=== PATIENT | male | born 1935 | race Caucasian/White ===

== ENCOUNTER 2021-02-15 04:00 | Inpatient (IN) | payer MEDICARE ==
[2021-02-15 05:55] LABS: ALT (SGPT) 13 U/L (8-55); AST (SGOT) 14 U/L (5-34); Albumin 3.8 g/dL (3.4-4.8); Alkaline Phosphatase 68 U/L (40-110); Anion Gap 18 mmol/L (10-20); BUN (Urea Nitrogen) 42 mg/dL (8.4-25.7); Bilirubin, Total 0.8 mg/dL (0.2-1.2); Calc. Creatinine Clearance 0 mL/min (70-130); Calcium 8.8 mg/dL (7.8-10.44); Carbon Dioxide 26 mmol/L (23-31); Chloride 100 mmol/L (98-107); Globulin 2.5 g/dL (2.4-3.5); Glucose 97 mg/dL (83-110); Potassium 3.5 mmol/L (3.5-5.1); Protein, Total 6.3 g/dL (5.8-8.1); Sodium 140 mmol/L (136-145)
[2021-02-15 06:00] LABS: #Eosinphils 0.3 thou/uL (0.0-0.7); #Lymphocytes 0.8 thou/uL (1.20-3.40); #Monocytes 0.6 thou/uL (0.11-0.59); #Neutrophils 8.9 thou/uL (1.40-6.50); %Basophils 0.2 % (0.0-1.0); %Eosinophils 2.5 % (0.0-10.0); %Lymphocytes 7.7 % (21.0-51.0); %Monocytes 5.5 % (0.0-10.0); %Neutrophils 84.1 % (42.0-75.0); Hemoglobin 12.3 g/dL (14.0-18.0); MDiff Complete? YES; Macrocytosis SLIGHT = 6-15 cells (100X) (0-5/hpf); Mean Corpuscular HGB CONC 34.2 g/dL (32.0-36.0); Mean Corpuscular Hemoglobin 36.3 pg (27.0-31.0); Mean Platelet Volume 7.9 fL (7.4-10.4); Platelet Count 146 thou/uL (130-400); RBC Distribution Width 13.8 % (11.5-14.5); Red Blood Cell (RBC) Count 3.39 mill/uL (4.70-6.10); White Blood Cell (WBC) Count 10.6 thou/uL (4.8-10.8)
[2021-02-15] MEDS ORDERED: Cyclobenzaprine 10 MG TAB PO PRN (06:20)
[2021-02-15] MEDS ORDERED: hydrALAZINE 20 MG/ML VIAL SLOW IVP PRN (06:20)
[2021-02-15] MEDS ORDERED: Ondansetron PF 4 MG/2 ML Vial IVP PRN (06:20)
[2021-02-15] MEDS ORDERED: traMADol HCl 50 MG TAB PO PRN ×2 (06:20)
[2021-02-15] MEDS ORDERED: Dextrose 50% Abboject 50 ML SYRINGE SLOW IVP PRN (06:20)
[2021-02-15] MEDS ORDERED: Dextrose 5% in Water 1,000 ML IV PRN (06:20)
[2021-02-15] MEDS ORDERED: Ondansetron ODT 4 MG TAB PO PRN (06:20)
[2021-02-15 06:23] VITALS: BMI 24.3
[2021-02-15] MEDS: Sodium Chloride 0.9% 1,000 ML IV SCH ×3 (06:42→23:59)
[2021-02-15] MEDS: Acetaminophen 500 MG TAB PO SCH ×3 (06:42→19:52)
[2021-02-15] MEDS ORDERED: CEFAZOLIN 2 GM in Premix Bag 1 BAG IVPB SCH (07:15)
[2021-02-15] MEDS ORDERED: Famotidine 20 MG TAB PO SCH (09:00)
[2021-02-15 09:06] LABS: SARS-CoV-2 NAA Rapid Test Not Detected (NotDetected)
[2021-02-15] MEDS: Famotidine 20 MG TAB PO SCH (11:15)
[2021-02-15] MEDS ORDERED: Fentanyl 100 MCG/2 ML VIAL ONE ×2 (13:55→16:50)
[2021-02-15] MEDS ORDERED: Ondansetron PF 4 MG/2 ML Vial ONE (15:00)
[2021-02-15] MEDS ORDERED: PROPOFOL 200 MG/20 ML VIAL ONE (15:00)
[2021-02-15] MEDS ORDERED: Rocuronium Bromide 10 MG/ML (10ML VIAL) ONE (15:00)
[2021-02-15] MEDS ORDERED: Dexamethasone 20 MG/5 ML VIAL ONE (15:00)
[2021-02-15] MEDS ORDERED: Lidocaine 1% PF 5 ML VIAL ONE (15:00)
[2021-02-15] MEDS ORDERED: Promethazine HCl 25 MG/ML VIAL IM/IV PRN ×2 (16:00→17:00)
[2021-02-15] MEDS ORDERED: Ondansetron HCl/PF 4 MG/2 ML Vial IVP PRN ×2 (16:00→17:00)
[2021-02-15] MEDS ORDERED: SUGAMMADEX SODIUM 200 MG/2 ML VIAL ONE (16:03)
[2021-02-15] MEDS ORDERED: Non-Formulary Medication 1 EACH PO PRN (16:53)
[2021-02-15] MEDS: Carvedilol 6.25 MG TAB PO SCH (19:53)
[2021-02-15] MEDS: CEFAZOLIN 2 GM in Premix Bag 1 BAG IVPB SCH (21:13)
[2021-02-16] MEDS: CEFAZOLIN 2 GM in Premix Bag 1 BAG IVPB SCH (05:56)
[2021-02-16] MEDS: Levothyroxine Sodium 88 MCG TAB PO SCH (05:56)
[2021-02-16] MEDS: Acetaminophen 500 MG TAB PO SCH ×3 (05:56→15:26)
[2021-02-16] MEDS: Sodium Chloride 0.9% 1,000 ML IV SCH (06:43)
[2021-02-16 06:47] LABS: #Lymphocytes 0.6 thou/uL (1.20-3.40); #Monocytes 0.6 thou/uL (0.11-0.59); %Basophils 0.2 % (0.0-1.0); %Eosinophils 0.2 % (0.0-10.0); %Monocytes 6.1 % (0.0-10.0); %Neutrophils 87.5 % (42.0-75.0); Hemoglobin 9.6 g/dL (14.0-18.0); Mean Corpuscular HGB CONC 34.5 g/dL (32.0-36.0); Mean Corpuscular Hemoglobin 36.3 pg (27.0-31.0); Mean Platelet Volume 8.4 fL (7.4-10.4); Platelet Count 126 thou/uL (130-400); RBC Distribution Width 13.8 % (11.5-14.5); Red Blood Cell (RBC) Count 2.64 mill/uL (4.70-6.10); White Blood Cell (WBC) Count 9.2 thou/uL (4.8-10.8)
[2021-02-16 07:08] LABS: Anion Gap 16 mmol/L (10-20); BUN (Urea Nitrogen) 55 mg/dL (8.4-25.7); Calc. Creatinine Clearance 6 mL/min (70-130); Calcium 8.3 mg/dL (7.8-10.44); Carbon Dioxide 26 mmol/L (23-31); Chloride 102 mmol/L (98-107); Glucose 131 mg/dL (83-110); Potassium 4.5 mmol/L (3.5-5.1); Sodium 139 mmol/L (136-145)
[2021-02-16] MEDS: Aspirin 81 mg Enteric Coated Tablet PO SCH ×2 (12:06→19:59)
[2021-02-16] MEDS: Famotidine 20 MG TAB PO SCH (12:06)
[2021-02-16] MEDS: Amlodipine 10 MG TAB PO SCH (12:07)
[2021-02-16] MEDS: Carvedilol 6.25 MG TAB PO SCH ×2 (12:07→19:58)
[2021-02-16] MEDS: hydrALAZINE 25 MG TAB PO SCH ×2 (14:37→19:58)
[2021-02-16] MEDS ORDERED: Non-Formulary Item 1 EACH (Hydralazine Hcl [Hydralazine Hcl] 50 MG Tablet) PO SCH (15:00)
[2021-02-16] MEDS: Acetaminophen 325 MG TAB PO SCH ×2 (15:18→22:13)
[2021-02-16] MEDS ORDERED: Haloperidol Lactate 5 MG/ML VIAL SLOW IVP SCH (19:45)
[2021-02-17] MEDS: Acetaminophen 325 MG TAB PO SCH ×3 (03:50→14:26)
[2021-02-17] MEDS: hydrALAZINE 25 MG TAB PO SCH ×3 (03:51→14:27)
[2021-02-17] MEDS: Aspirin 81 mg Enteric Coated Tablet PO SCH ×2 (03:51→09:04)
[2021-02-17] MEDS: Levothyroxine Sodium 88 MCG TAB PO SCH (05:48)
[2021-02-17] MEDS: Famotidine 20 MG TAB PO SCH (09:03)
[2021-02-17] MEDS: Amlodipine 10 MG TAB PO SCH (09:04)
[2021-02-17] MEDS: Carvedilol 6.25 MG TAB PO SCH (09:04)
[2021-02-17 16:23] VITALS: BP 159/72; TEMP 98.2
== END 2021-02-17 18:05 | DRG 521 ==
LOC: ERS 04:00 → SURG B 04:49
PROVIDERS: ADMIT Surgery; ATTEND Surgery
PROC: 0SRS0JA Replacement of Left Hip Joint, Femoral Surface with Synthetic Substitute, Uncemented, Open Approach (ICD-10-PCS; principal; 2021-02-15)
PROC: 5A1D70Z Performance of Urinary Filtration, Intermittent, Less than 6 Hours Per Day (ICD-10-PCS; 2021-02-16)
DX: S72.002A Fracture of unspecified part of neck of left femur, initial encounter for closed fracture (principal); N18.6 End stage renal disease; I12.0 Hypertensive chronic kidney disease with stage 5 chronic kidney disease or end stage renal disease; E03.9 Hypothyroidism, unspecified; E78.5 Hyperlipidemia, unspecified; K21.9 Gastro-esophageal reflux disease without esophagitis; Z96.653 Presence of artificial knee joint, bilateral; Z20.822 Contact with and (suspected) exposure to COVID-19; W01.0XXA Fall on same level from slipping, tripping and stumbling without subsequent striking against object, initial encounter; Y92.009 Unspecified place in unspecified non-institutional (private) residence as the place of occurrence of the external cause; Z99.2 Dependence on renal dialysis; Z86.73 Personal history of transient ischemic attack (TIA), and cerebral infarction without residual deficits
CPT/HCPCS: 36415; 70450; 71045; 72170; 80048; 80053; 85025; 93005; J0690; J1100; J1630; J2405; J2704; J3010; U0002